=== PATIENT | female | born 2000 | race Caucasian/White ===

== ENCOUNTER 2024-05-06 19:41 | Emergency (ER) | payer OTHER, SELFPAY ==
[2024-05-06] VITALS (10 sets, daily range): BP systolic 111–138; BP diastolic 69–83; PULSE 73–88; RESP 16–20; TEMP 36.6; O2SAT 95–100
--- NOTE | 2024-05-06 19:59 | ED.GENADUL_ITS ---
Discharge Plan Disposition Patient Disposition: Home Condition: Stable Discharge Details Clinical Impression: Abdominal pain Primary Care Provider: Ellen Rao ED Provider: Cami Blas Home Meds and New Rx's Prescriptions: No Action No Known Home Meds Discharge Instructions Instructions: Abdominal Pain, Adult ED Additional Instructions: No evidence of appendicitis and your right ovary was not viewed completely but no significant enlargement. No evidence of abnormal labs. Please continue taking Tylenol and ibuprofen, gargle with warm salt water at least 3 times a day and continue taking the antibiotic as previously prescribed with yogurt or a probiotic. Return to the ER for any worsening pain, fever or chills, nausea vomiting diarrhea blood in your stool or concerns. Follow up with primary care provider in 3-5 days. Return to ED sooner if any worsening or concerns. Please take Tylenol or Ibuprofen with food every 4-6 hours as needed for pain a nd swelling. Stand Alone Forms: Work Release Referrals: Ellen Rao, [employer] [Primary Care Provider] - 5 days HPI General Mode of arrival: ambulatory . Date/Time Provider Initiated Documentation: 05/06/24 19:53 . Limitations to Documentation: no limitations . Information obtained by: patient, RN notes reviewed and old records reviewed . HPI Narrative: Patient reports sore throat which began yesterday was seen at urgent care had a negative rapid strep however was treated with penicillin due to clinical presentation. Patient has 3+ tonsils bilaterally with exudate. She also notes that she began with right lower quadrant abdominal pain, worse with movement reports sharp and intermittent. Endorses nausea no vomiting no diarrhea denies any problems urinating or burning with urination. Endorses chills no documented fever. Does have a history of ovarian cyst but no history of abdominal surgeries. Related Data Home Medications ?Medication ?Instructions ?Recorded ?Confirmed Unknown [No Known Home Meds] 05/06/24 05/06/24 Allergies Allergy/AdvReac Type Severity Reaction Status Date / Time No Known Drug Allergies Allergy Unknown Verified 05/06/24 20:11 [place] Allergy Unknown Uncoded 05/06/24 20:11 General Stated Complaint: Abd Prob ADITYA: 3 Review of Systems All systems reviewed & are unremarkable except as noted in HPI and below Constitutional Constitutional: Reports as per HPI ENT Ears, Nose, Mouth, and Throat: Reports sore throat and Reports throat swelling Gastrointestinal Gastrointestinal: Reports abdominal pain, Reports nausea and Denies vomiting Allergic/Immunologic Allergic/Immunologic: Reports throat swelling Exam Narrative Exam Narrative: Constitutional: Alert and oriented x3. Appears stated age. Normal body habitus. Head: Normocephalic, no trauma. Eyes: Pupils PERRL, Red reflex noted, EOM's intact. Eyelids symmetrical without lesions, discharge, or swelling. ENT: Bilateral TM's WNL, External ear normal to inspection, no mastoid TTP, swelling, or erythema, Nasal turbinates WNL, no nasal discharge. Normal dentition, Posterior pharynx erythemic, tonsils 2+ bilaterally with exudate. Chest: RRR, Normal S1, S2, distal pulses intact. Resp: Lungs clear to auscultation bilaterally, no wheezes, rales, or rhonchi. Abdomen: Soft, non-distended, Normoactive bowel sounds all 4 quads. Right lower quadrant tenderness with palpation, no masses. Patient ate just prior to arrival. Musculoskeletal: Normal gait, Moves all 4 extremities without difficulty. Skin: No suspicious rashes or lesions. Capillary refill less than 2 sec. Neurologic: Cranial nerves II-XII intact. Alert and oriented x 3. Motor: No deficits noted. Sensory: Intact bilaterally all 4 extremities. Hematologic/Lymphatic: No ecchymosis, no lymphadenopathy. Course Vital Signs Vital signs: Vital Signs Temperature 36.6 C 05/06/24 19:48 Pulse 88 05/06/24 19:48 Respiratory Rate 18 05/06/24 19:48 Blood Pressure 138/83 05/06/24 19:48 Pulse Oximetry 98 05/06/24 19:48 Temperature 36.6 C 05/06/24 19:48 Temperature Source Oral 05/06/24 19:48 Pulse 88 05/06/24 19:48 Respiratory Rate 18 05/06/24 19:48 Blood Pressure 138/83 05/06/24 19:48 Blood Pressure Position Sitting 05/06/24 19:48 Pulse Oximetry 98 05/06/24 19:48 Oxygen Delivery Method Room Air 05/06/24 19:48 Oxygen Flow Rate 0 05/06/24 19:48 Pain Level 3 05/06/24 19:48 Medical Decision Making Patient reports sore throat which began yesterday was seen at urgent care had a negative rapid strep however was treated with penicillin due to clinical presentation. Patient has 3+ tonsils bilaterally with exudate. She also notes that she began with right lower quadrant abdominal pain, worse with movement reports sharp and intermittent. Endorses nausea no vomiting no diarrhea denies any problems urinating or burning with urination. Endorses chills no documented fever. Does have a history of ovarian cyst but no history of abdominal surgeries. CBC CMP, lipase urinalysis urine and monoscreen ordered. Differential diagnose includes but not limited to mono, ovarian cyst, gastroenteritis, appendicitis, bowel obstruction which is less likely as no vomiting. CBC shows no leukocytosis, CMP largely within normal limits potassium slightly low at 3.4, lipase within normal limits no evidence of urinary tract infection on urinalysis. Negative monoscreen. CT shows no acute bowel pathology. Right ovary is obscured by pelvic bowel loops and not well-evaluated. Will discharge patient after giving dexamethasone p.o. Will instruct to gargle with warm salt water 3 times daily. Continue taking the antibiotics as previously prescribed. And take Tylenol and ibuprofen. Discussed CT results with patient who verbalized understanding. Patient ambulatory upon discharge hemodynamically stable. This text was generated using [employer] system, please disregard any oddities of phrase or misspellings. Medical Records Medical records reviewed: Yes I reviewed the patient's medical records. Imaging Data Radiologic Study: Imaging: CT Scan Radiologist's impression: FINDINGS: Lungs: Lung bases clear. Liver: Normal appearing liver. Gallbladder and biliary ducts: Gallbladder partially collapsed. No calcified gallstones seen. No biliary dilatation. Pancreas: Normal appearing pancreas. Spleen: Normal appearing spleen. Adrenal glands: Normal appearing adrenal glands. Kidneys and ureters: Normal appearing kidneys. No hydronephrosis. Stomach and bowel: No oral contrast. Stomach partially distended with ingested material. No small bowel dilatation to suggest obstruction. Normal-appearing colon. No evidence of diverticulitis or colitis. Appendix: Normal appendix. Intraperitoneal space: No gross ascites or free air. Vasculature: Normal caliber abdominal aorta. Lymph nodes: Scattered small mesenteric lymph nodes, nonspecific. Urinary bladder: Urinary bladder collapsed and not well evaluated but grossly unremarkable, as seen. Reproductive: Anteverted uterus, normal in size. Normal-appearing left ovary. Right ovary largely obscured by pelvic bowel loops and not well evaluated but not grossly enlarged. Bones/joints: No acute fracture seen among the bones of the abdomen or pelvis. Soft tissues: Tiny fat-containing ventral hernia at the umbilicus, doubtful clinical significance. IMPRESSION: 1. No acute bowel pathology demonstrated. 2. No gross ascites. Thank you for a Lab Data Lab results reviewed: Yes I reviewed the patient's lab results. Labs: Laboratory Tests Range/Units 05/06/24 05/06/24 20:20 20:31 WBC (4.4-10.8) 10^3/uL 8.45 RBC (3.93-5.22) 10^6/uL 4.28 Hgb (11.2-15.7) g/dL 13.6 Hct (36.0-46.0) % 38.9 MCV (80-95) fL 91 MCH (27.0-33.0) pg 31.8 MCHC (32.0-36.0) % 35.0 RDW (11.7-14.6) % 12.4 Plt Count (130-400) 10^3/uL 284 MPV (8.0-11.0) fL 10.5 Immature Gran % % 0.2 Neutrophils % % 64.4 Lymphocytes % % 25.4 Monocytes % % 7.9 Eosinophils % % 1.7 Basophils % % 0.4 Nucleated RBC % (0.0-0.3) % 0.0 Absolute Neutrophils (1.2-6.7) 10^3/uL 5.44 Absolute Lymphocytes (1.2-3.4) 10^3/uL 2.15 Absolute Monocytes (0.1-0.8) 10^3/uL 0.67 Absolute Eosinophils (0.0-0.7) 10^3/uL 0.14 Absolute Basophils (0.0-0.2) 10^3/uL 0.03 Sodium (136-145) mmol/L 142 Potassium (3.5-5.1) mmol/L 3.4 L Chloride (98-107) mmol/L 104 Carbon Dioxide (21.0-32.0) mmol/L 33.1 H Anion Gap (3-11) mmol/L 4.9 BUN (7-18) mg/dL 10 Creatinine (0.55-1.02) mg/dL 0.9 Est GFR (CKD-EPI 2020) (mL/min/1.73m2) 92.12 Glucose (74-106) mg/dL 87 Calcium (8.5-10.1) mg/dL 9.5 Magnesium (1.8-2.4) mg/dL 1.9 Total Bilirubin (0.2-1.0) mg/dL 0.54 AST (15-37) U/L 18 ALT (14-59) U/L 29 Alkaline Phosphatase (46-116) U/L 69 Total Protein (6.4-8.2) g/dL 8.1 Albumin (3.4-5.0) g/dL 4.4 Lipase (<78) U/L 48 Urine Color (Yellow) Yellow Urine Clarity (Clear) Clear Urine pH (5-8) 6.0 Ur Specific [place] (1.005-1.025) >= 1.030 H Urine Protein (Neg-Trace) mg/dL Negative Urine Ketones (Negative) mg/dL Negative Urine Blood (Negative) Small H Urine Nitrite (Negative) Negative Urine Bilirubin (Negative) Negative Urine Urobilinogen (Up to 0.2) mg/dL 0.2 Ur Leukocyte Esterase (Negative) Negative Urine RBC (0-2) HPF 3-5 H Urine WBC (0-5) HPF 0-2 Ur Epithelial Cells (Negative) HPF Few Urine Crystals (Negative) HPF Negative Urine Bacteria (Negative) HPF Rare Urine Casts (Negative) LPF Negative Urine Mucus (Negative) Negative Ur Culture Indicated? No Urine Glucose (Negative) mg/dL Negative Monoscreen (Negative) Negative Quality:SDOH Health Related Social Needs: No Data to Display PFSH All Active Problems (Updated 05/06/24 @ 21:37 by Cami Blas NP) Abdominal pain (Acute) Sensation of fullness in both ears (Acute) Otalgia of both ears (Acute) PCOS (polycystic ovarian syndrome) (Acute) Hypothyroidism (Chronic) Dysfunction of both eustachian tubes (Acute) Depression (Chronic) Class 3 severe obesity due to excess calories with body mass index (BMI) of 40.0 to 44.9 in adult (Acute) Anxiety (Chronic) ADHD (Acute) Medical History Palpitations Left otitis media Left lower quadrant abdominal pain Family History Sister ADHD Sister ADHD Mother Fibromyalgia Sleep apnea Father Hypertension Sleep apnea Other Afib Lupus (systemic lupus erythematosus) Rheumatoid aortitis Social History Smoking/Tobacco Use Status: Former Tobacco Use Smoking risk assessment performed?: Yes Alcohol Intake: current Alcohol Intake frequency: a few times a month Drug use: Never Household members: significant other Do you think of yourself as: straight/heterosexual Current gender identity: female Do you feel safe at home: Yes Do you feel safe in your relationship?: Yes
--- NOTE | 2024-05-06 20:30 | DI.CT_ITS ---
Exam(s) CT ABDOMEN PELVIS W EXAM: CT ABDOMEN PELVIS W CLINICAL HISTORY: RLQ abd pain TECHNIQUE: Imaging Protocol: Axial computed tomography images with coronal and sagittal reformatted images were created and reviewed. CONTRAST MATERIAL: Intravenous: Omnipaque 350 Contrast volume:100 mL Oral: No COMPARISON: No exams were available for comparison FINDINGS: ABDOMEN: Lung Bases: No acute abnormality. Liver: Normal density. No measurable mass. Portal, Superior Mesenteric, and Splenic Veins: Unremarkable. Gallbladder and Biliary Tract: No radiodense calculus or dilation. Pancreas: Normal density, no abnormal calcifications or inflammatory process. Spleen: Normal. Adrenals: No masses seen. Kidneys: Normal size, contour and axis. No radiodense stones or obstructive uropathy. No masses seen. Abdominal Aorta: Abdominal portion non-dilated. Bowel: No obstruction or bowel wall thickening. Appendix is unremarkable. Peritoneal Cavity: No ascites, collection or mesenteric inflammatory response. No free air. Lymph Nodes: Within normal limits. Bones: Within normal limits for the patient's age. Soft Tissues: Unremarkable. PELVIS: Bladder: Symmetric distention, no gross wall thickening. Reproductive Organs: Unremarkable as visualized. Lymph Nodes: Within normal limits. Bones: Within normal limits for the patient's age. IMPRESSION: 1. No acute abdominal or pelvic process. 2. Normal appendix. RADIATION DOSE DELIVERED: 1,790.95mGy.cm Total DLP DATA REPOSITORY: All CT scans at this facility are submitted to the National Radiology Data Registry (NRDR) Dose Index Registry (DIR) with the [employer] (ACR). RADIATION OPTIMIZATION: All CT scans at this facility use at least one of these dose optimization te chniques: automated exposure control; mA and/or kV adjustment per patient size (includes targeted exa ms where dose is matched to clinical indication); or iterative reconstruction.
[2024-05-06 20:39] LABS: Bilirubin Negative (Negative); Blood Small (Negative); Clarity Clear (Clear); Glucose Negative (Negative); Ketones Negative (Negative); Leukocyte Esterase Negative (Negative); Nitrite Negative (Negative); Specific Gravity >= 1.030 (1.005-1.025); Urobilinogen 0.2 mg/dL (Up to 0.2)
[2024-05-06 20:39] LABS: Abs Immature Grans 0.02 10^3/uL (0.0-0.06); Absolute Basophil Count 0.03 10^3/uL (0.0-0.2); Absolute Eosinophil Count 0.14 10^3/uL (0.0-0.7); Absolute Lymphocyte Count 2.15 10^3/uL (1.2-3.4); Absolute Monocyte Count 0.67 10^3/uL (0.1-0.8); Absolute Neutrophil Count 5.44 10^3/uL (1.2-6.7); Basophils % 0.4 %; Eosinophils % 1.7 %; HCT 38.9 % (36.0-46.0); HGB 13.6 g/dL (11.2-15.7); Immature Grans % 0.2 %; Lymphocytes % 25.4 %; MCH 31.8 pg (27.0-33.0); MCV 91 fL (80-95); MPV 10.5 fL (8.0-11.0); Monocytes % 7.9 %; Neutrophils % 64.4 %; Platelet Count 284 10^3/uL (130-400); RBC 4.28 10^6/uL (3.93-5.22); RDW 12.4 % (11.7-14.6); RDW-SD 40.6 fL; WBC 8.45 10^3/uL (4.4-10.8)
[2024-05-06 20:51] LABS: Bacteria Rare HPF (Negative); C & S Indicated? No; Casts Negative LPF (Negative); Crystals Negative HPF (Negative); Epithelial Cells Few HPF (Negative); Mucus Negative (Negative); WBC 0-2 HPF (0-5)
[2024-05-06 20:51] LABS: Mono Screening Negative (Negative)
[2024-05-06 20:55] LABS: ALT 29 U/L (14-59); AST 18 U/L (15-37); Albumin 4.4 g/dL (3.4-5.0); Alkaline Phosphatase 69 U/L (46-116); Anion Gap 4.9 mmol/L (3-11); BUN 10 mg/dL (7-18); Bilirubin, Total 0.54 mg/dL (0.2-1.0); CO2 33.1 mmol/L (21.0-32.0); CREATININE 0.9 mg/dL (0.55-1.02); Calcium 9.5 mg/dL (8.5-10.1); Chloride 104 mmol/L (98-107); Estimated GFR 92.12 (mL/min/1.73m2); Glucose 87 mg/dL (74-106); Lipase 48 U/L (<78); Magnesium 1.9 mg/dL (1.8-2.4); Potassium 3.4 mmol/L (3.5-5.1); Sodium 142 mmol/L (136-145); Total Protein 8.1 g/dL (6.4-8.2)
[2024-05-06] MEDS: Omnipaque 350 MG/ML 100 ML BTL IJ (20:55)
[2024-05-06] MEDS: Normal Saline - Diluent 50 ML VIAL IJ (20:56)
--- NOTE | 2024-05-06 21:22 | DI.VRAD_ITS ---
PROCEDURE INFORMATION: Exam: CT Abdomen And Pelvis With Contrast Exam date and time: 05/06/2024 8:53 PM Age: 23 years old Clinical indication: Abdominal pain TECHNIQUE: Imaging protocol: Computed tomography of the abdomen and pelvis with contrast. Contrast material: OMNIPAQUE 350; Contrast volume: 100 ml; Contrast route: INTRAVENOUS (IV); COMPARISON: No relevant prior studies available. FINDINGS: Lungs: Lung bases clear. Liver: Normal appearing liver. Gallbladder and biliary ducts: Gallbladder partially collapsed. No calcified gallstones seen. No biliary dilatation. Pancreas: Normal appearing pancreas. Spleen: Normal appearing spleen. Adrenal glands: Normal appearing adrenal glands. Kidneys and ureters: Normal appearing kidneys. No hydronephrosis. Stomach and bowel: No oral contrast. Stomach partially distended with ingested material. No small bowel dilatation to suggest obstruction. Normal-appearing colon. No evidence of diverticulitis or colitis. Appendix: Normal appendix. Intraperitoneal space: No gross ascites or free air. Vasculature: Normal caliber abdominal aorta. Lymph nodes: Scattered small mesenteric lymph nodes, nonspecific. Urinary bladder: Urinary bladder collapsed and not well evaluated but grossly unremarkable, as seen. Reproductive: Anteverted uterus, normal in size. Normal-appearing left ovary. Right ovary largely obscured by pelvic bowel loops and not well evaluated but not grossly enlarged. Bones/joints: No acute fracture seen among the bones of the abdomen or pelvis. Soft tissues: Tiny fat-containing ventral hernia at the umbilicus, doubtful clinical significance. IMPRESSION: 1. No acute bowel pathology demonstrated. 2. No gross ascites. Dictated and Authenticated by: Cesar Gaxiola MD. Orderin Roopa Almanza MD
[2024-05-06] MEDS: Dexamethasone 10 MG/ML VIAL PO (21:42)
== END 2024-05-06 21:46 | disposition home or self-care (01) ==
PROVIDERS: Emergency Provider Registered Nurse Emergency
DX: R10.31 Right lower quadrant pain (principal); Z87.891 Personal history of nicotine dependence
CPT/HCPCS: 36415; 80053; 81025; 83690; 99285; 74177; 81003; 81015; 83735; 85025; 86308; 99284; J1100; J3490